=== PATIENT | male | born 1960 | race Hispanic/Latino ===

== ENCOUNTER 2020-10-28 13:05 | Emergency (ER) | payer SELFPAY ==
[~2020-10-28] VITALS: Ht 170.2 cm; Wt 81.6 kg
[2020-10-28] MEDS ORDERED: HYDROCODONE/APAP 5MG-325MG TAB PO ONE (13:30)
[2020-10-28] MEDS ORDERED: IBUPROFEN 600 MG TAB PO ONE (13:30)
[2020-10-28] MEDS ORDERED: ONDANSETRON HCL 4 MG ORAL DISINTEGRATING TAB ONE (13:33)
[2020-10-28] MEDS ORDERED: IBUPROFEN 600 MG TAB ONE (13:34)
[2020-10-28] MEDS ORDERED: ONDANSETRON HCL 4 MG ORAL DISINTEGRATING TAB PO ONE (14:00)
[2020-10-28] MEDS ORDERED: IBUPROFEN IB200 MG PO (15:07)
[2020-10-28] MEDS ORDERED: ONDANSETRON ODT4 MG PO (15:07)
[2020-10-28] MEDS ORDERED: ACETAMINOPHEN-1 EAC4 PO (15:07)
== END 2020-10-28 16:09 | disposition home or self-care (01) ==
LOC: FSED 13:10
DX: S93.402A Sprain of unspecified ligament of left ankle, initial encounter (principal); X50.1XXA Overexertion from prolonged static or awkward postures, initial encounter; Y93.H2 Activity, gardening and landscaping; Y92.007 Garden or yard of unspecified non-institutional (private) residence as the place of occurrence of the external cause; J45.909 Unspecified asthma, uncomplicated; F17.210 Nicotine dependence, cigarettes, uncomplicated
CPT/HCPCS: 73610; 96372; 99284; Q0162